=== PATIENT | male | born 1990 | race Two or more races ===

== ENCOUNTER 2019-09-12 01:21 | Emergency (ER) | payer MEDICAID ==
[~2019-09-12] VITALS: Ht 175.3 cm; Wt 73.5 kg
[2019-09-12] MEDS ORDERED: HYDROCODONE/APAP 5/325MG 1 EACH TABLET PO ONE (01:30)
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
--- NOTE | 2019-09-12 01:40 | NUR ---
XRAY AT BEDSIDE
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
[2019-09-12] MEDS ORDERED: HYDROCODONE/APAP 5/325MG 1 EACH TABLET ONE (01:44)
--- NOTE | 2019-09-12 02:48 | NUR ---
Patient is resting comfortably in bed speaking on the phone. Easily aroused. VSS.
--- NOTE | 2019-09-12 03:22 | NUR ---
Patient discharged to home in stable condition. Written and verbal after care instructions given. Patient verbalizes understanding of instruction. Pt ambulatory with a steady gait.
[2019-09-12 03:23] VITALS: BP 124/86
== END 2019-09-12 03:24 | disposition home or self-care (01) ==
LOC: EDBD 01:21 → ER 01:53
DX: S40.011A Contusion of right shoulder, initial encounter (principal); Z88.8 Allergy status to other drugs, medicaments and biological substances; V49.59XA Passenger injured in collision with other motor vehicles in traffic accident, initial encounter; Y93.89 Activity, other specified; Y92.413 State road as the place of occurrence of the external cause; Y99.8 Other external cause status
CPT/HCPCS: 73030-TC